=== PATIENT | male | born 1960 | race Two or more races ===

== ENCOUNTER 2024-03-25 11:11 | Inpatient (IN) | payer MEDICAID, OTHER ==
[~2024-03-25] VITALS: Ht 172.7 cm; Wt 64.5 kg
--- NOTE | 2024-03-25 11:48 | ED.PDOC ---
History of Present Illness HPI Comments 63-year-old male who comes in with chief complaint of a headache as well as dizziness and neck pain. The patient states that the symptoms have been going on for the past three weeks. The patient went to a local urgent care and at that time they found him to be very hypertensive with a systolic over 200 and d iastolic over 100. Denies any chest pain or shortness for breath. The patient was complaining of some blurred vision as well as some dizziness. At this time he states that the pain is a 6/10. The doctor at the urgent care called 911 and had the patient transported to our facility secondary to the increased blood pressure. The patient does have some mild left-sided weakness secondary to a CVA that he had in the past. 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 Location: The patient states that the headache is somewhat generalized Associated signs and symptoms The patient has blurred vision as well as dizziness Past Medical History PAST MEDICAL HISTORY: CVA, High Lipids Surgical History: Denies all surgeries Family History Family History: Family hx of DM Social History Smoker: Non-Smoker Alcohol: Denies ETOH Use Drugs: Denies Drug Use Lives In: Home Constitutional: denies: chills, diaphoresis, fatigue, fever, malaise, sweats, weakness, others EENTM: reports: blurred vision; denies: double vision, ear bleeding, ear discharge, ear drainage, ear pain, ear ringing, eye pain, eye redness, hearing loss, mouth pain, mouth swelling, nasal discharge, nose bleeding, nose congestion, nose pain, photophobia, tearing, throat pain, throat swelling, voice changes, others Respiratory: denies: cough, hemoptysis, orthopnea, SOB at rest, shortness of breath, SOB with excertion, stridor, wheezing, others Cardiovascular: denies: chest pain, dizzy spells, diaphoresis, Dyspnea on exertion, edema, irregular heart beat, left arm pain, lightheadedness, palpitations, PND, syncope, others Gastrointestinal: denies: abdomen distended, abdominal pain, blood streaked bowels, constipated, diarrhea, dysphagia, difficulty swallowing, hematemesis, melena, nausea, poor appetite, poor fluid intake, rectal bleeding, rectal pain, vomiting, others Genitourinary: denies: burning, dysuria, flank pain, frequency, hematuria, incontinence, penile discharge, penile sore, pain, testicle pain, testicle swelling, urgency, others Neurological: reports: dizziness, headache; denies: fainting, left sided numbness, left sided weakness, numbness, paresthesia, pre-existing deficit, right sided numbness, right sided weakness, seizure, speech problems, tingling, tremors, weakness, others Musculoskeletal: reports: neck pain; denies: back pain, gout, joint pain, joint swelling, muscle pain, muscle stiffness, others Integumetry: denies: bruises, change in color, change in hair/nails, dryness, laceration, lesions, lumps, rash, wounds, others Allergic/Immunocompromised: denies: Difficulty Healing, Frequent Infections, Hives, Itching, others Hematologic/Lymphatic: denies: anemia, blood clots, easy bleeding, easy bruis ing, swollen glands, others Endocrine: denies: excessive hunger, excessive sweating, excessive thirst, exc essive urination, flushing, intolerance to cold, intolerance to heat, unexplained weight gain, unexplained weight loss, others Psychiatric: denies: anxiety, bipolar disorder, depression, hopeless, panic disorder, schizophrenia, sleepless, suicidal, others Physical Exam General Appearance: Mild Distress HEENT: Normal ENT Inspection, Pharynx Normal, TMs Normal Neck: Full Range of Motion, Non-Tender, Normal, Normal Inspection Respiratory: Chest Non-Tender, Lungs Clear, No Accessory Muscle Use, No Respiratory Distress, Normal Breath Sounds Cardiovascular: No Edema, No JVD, No Murmur, No Gallop, Normal Peripheral Pulses, Regular Rate/Rhythm Breast Exam: Deferred Gastrointestinal: No Organomegaly, Non Tender, No Pulsatile Mass, Normal Bowel Sounds, Soft Genitalia: Deferred Pelvic: Deferred Rectal: Deferred Extremities: No calf tenderness, Normal capillary refill, Normal inspection, Normal range of motion, Non-tender, No pedal edema Musculoskeletal : Apperance: Normal Neurologic: Alert, 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 Was a procedure done?: No EKG EKG : Pulse Rate (adult): 90 [place]: Normal Cardiac Rhythm: NSR Block: None ST: Nonsp Differential Dx Considerations may include: Accelerated hypertension, CVA, TIA, generalized weakness X-Ray, Labs, Meds, VS Vital Signs Date Time Temp Pulse Resp B/P (MAP) Pulse Ox O2 Delivery O2 Flow Rate FiO2 03/25/24 13:18 94 17 97 Room Air 03/25/24 13:18 97.9 94 17 184/109 (134) 97 97.9 03/25/24 13:17 184/109 03/25/24 12:36 90 03/25/24 11:33 90 03/25/24 11:27 98.0 99 20 148/124 (132) 100 Lab Test 03/25/24 11:45 Range/Units White Blood Count 6.5 4.4-10.8 10^3/uL Red Blood Count 5.19 4.5-5.90 10^6/uL Hemoglobin 14.9 13.5-17.5 g/dL Hematocrit 43.6 41.0-53.0 % Mean Corpuscular Volume 84.0 80.0-100.0 fL Mean Corpuscular Hemoglobin 28.7 28.0-32.0 pg Mean Corpuscular Hemoglobin Concent 34.1 32.0-36.0 g/dL Red Cell Distribution Width 13.0 11.8-14.3 % Platelet Count 266 140-450 10^3/uL Mean Platelet Volume 7.6 6.9-10.8 fL Neutrophils (%) (Auto) 77.4 37.0-80.0 % Lymphocytes (%) (Auto) 15.2 10.0-50.0 % Monocytes (%) (Auto) 5.8 0.0-12.0 % Eosinophils (%) (Auto) 0.9 0.0-7.0 % Basophils (%) (Auto) 0.7 0.0-2.0 % Neutrophils # (Auto) 5.1 1.6-8.6 10 ^3/uL Lymphocytes # (Auto) 1.0 0.4-5.4 10 ^3/uL Monocytes # (Auto) 0.4 0-1.3 10 ^3/uL Eosinophils # (Auto) 0.1 0-0.8 10 ^3/uL Basophils # (Auto) 0 0-0.2 10 ^3/uL Nucleated Red Blood Cells 0.5 % Sodium Level 138 136-145 mmol/L Potassium Level 4.2 3.5-5.1 mmol/L Chloride Level 100 98-107 mmol/L Carbon Dioxide Level 27 20-31 mmol/L Anion Gap 11 5-15 Blood Urea Nitrogen 16 9-23 mg/dL Creatinine 1.23 0.700-1.30 mg/dL Glomerular Filtration Rate Calc 66 >90 mL/min BUN/Creatinine Ratio 13.0 10.0-20.0 Serum Glucose 266 H 74-106 mg/dL Calcium Level 10.7 H 8.7-10.4 mg/dL Current Medications Medications (Trade) Dose Ordered Sig/Linda Route Start Time Stop Time Status Last Admin Clonidine HCl (Catapres Tablet) 0.2 mg ONCE ONCE PO 03/25/24 11:45 03/25/24 11:46 DC 03/25/24 13:17 IV Hep-Lock is being established The CBC is within normal limits The patient was given clonidine 0.2 mg by mouth for the elevated blood pressure The CT scan of the head shows: FINDINGS: There is no acute intracranial hemorrhage or extraaxial fluid collection. No mass effect or midline shift. Focal area of hypoattenuation in the right thalamus and adjacent portions of the right basal ganglia and extending to the subinsular region, likely encephalomalacia/gliosis. Small chronic appearing lacunar infarct in the left thalamus. Scattered areas of hypoattenuation are seen in the periventricular and subcortical white matter, which are nonspecific but most likely sequelae of small vessel ischemic disease.The ventricles and sulci are within normal limits in size for age. Basal cisterns are patent. The calvarium is unremarkable. Mild mucosal thickening of the paranasal sinuses. The patient was being admitted at this time. The patient has a accelerated hypertension We will continue to manage the patient's elevated blood pressure The patient was being given hydralazine IV for the elevated blood pressure Images Reviewed?: Images reviewed and evaluated by me Time of 1ST Reevaluation: 12:33 Reevaluation 1ST: Unchanged Patient Education/Counseling: Diagnosis, Treatment, Prognosis Family Education/Counseling: No Family Present Departure 1 Departure Time of Disposition: 12:33 Impression: Primary Impression: Accelerated hypertension Disposition: 09 ADMITTED INPATIENT Admit to: Tele Condition: Fair Critical Care Note Critical Care Time?: Yes (35 min-critical care time only) Stability Stability form required: Yes Unstable for transfer: Telemetry monitoring (Telemetry monitoring required), ED Physician Assesment (Clinical assesment) Heart Score Heart Score: Heart Score Response (Comments) Value History Moderate Suspicious 1 EKG Repolarization Disturb 1 Age 45-64 1 Risk Factors >3 or Hx ASHD 2 Troponin N/A 0 Total 5 GAL NYE MD Mar 25, 2024 11:48
[2024-03-25 12:26] LABS: Basophils # (auto) 0 10 ^3/uL (0-0.2); Basophils % (auto) 0.7 % (0.0-2.0); Eosinophils # (auto) 0.1 10 ^3/uL (0-0.8); Eosinophils % (auto) 0.9 % (0.0-7.0); Hematocrit 43.6 % (41.0-53.0); Hemoglobin 14.9 g/dL (13.5-17.5); Lymphocytes % (auto) 15.2 % (10.0-50.0); Mean Corpuscular Hemoglobin 28.7 pg (28.0-32.0); Mean Corpuscular Hgb Conc. 34.1 g/dL (32.0-36.0); Monocytes # (auto) 0.4 10 ^3/uL (0-1.3); Monocytes % (auto) 5.8 % (0.0-12.0); Neutrophils # (auto) 5.1 10 ^3/uL (1.6-8.6); Neutrophils % (auto) 77.4 % (37.0-80.0); Nucleated Red Blood Cells % 0.5 %; Platelet Count (auto) 266 10^3/uL (140-450); Red Blood Cells 5.19 10^6/uL (4.5-5.90); White Blood Cell 6.5 10^3/uL (4.4-10.8)
--- NOTE | 2024-03-25 12:28 | DVH ---
CLINICAL INFORMATION: 63 years old, Male; Dizziness and headache. TECHNIQUE: Axial imaging was obtained through the brain without contrast. Coronal and sagittal refor matted images were obtained, reviewed, and stored. Images were reviewed in brain and bone windows. A ll CT scans at this medical facility are performed using dose modulation techniques as appropriate to a performed exam including the following: Automated exposure control was utilized; adjustment of the MA and/or KV according to patient size; and use of iterative reconstruction technique. CTDIvol = 54.16 mGy DLP = 957.85 mGy-cm COMPARISON: None FINDINGS: There is no acute intracranial hemorrhage or extraaxial fluid collection. No mass effect o r midline shift. Focal area of hypoattenuation in the right thalamus and adjacent portions of the rig ht basal ganglia and extending to the subinsular region, likely encephalomalacia/gliosis. Small chron ic appearing lacunar infarct in the left thalamus. Scattered areas of hypoattenuation are seen in the periventricular and subcortical white matter, which are nonspecific but most likely sequelae of smal l vessel ischemic disease.The ventricles and sulci are within normal limits in size for age. Basal ci sterns are patent. The calvarium is unremarkable. Mild mucosal thickening of the paranasal sinuse s. IMPRESSION: 1. No CT evidence of acute intracranial abnormality. 2. Nonacute appearing findings as described above.
[2024-03-25 12:38] LABS: Chloride 100 mmol/L (98-107); Potassium 4.2 mmol/L (3.5-5.1); Sodium 138 mmol/L (136-145)
[2024-03-25 12:39] LABS: Anion Gap 11 (5-15); Carbon Dioxide 27 mmol/L (20-31)
[2024-03-25 12:44] LABS: Blood Urea Nitrogen 16 mg/dL (9-23); Calcium 10.7 mg/dL (8.7-10.4); Glucose 266 mg/dL (74-106)
[2024-03-25] MEDS: cloNIDine HCL 0.1 MG TAB PO ONE (13:17)
[2024-03-25] MEDS ORDERED: MORPHINE SULFATE INJ 2 MG/ml SYRG IV PRN (14:00)
[2024-03-25] MEDS ORDERED: DEXTROSE (50%) 50ML SYRG IV PRN (14:00)
[2024-03-25] MEDS: SODIUM CHLORIDE 0.9% 1,000 ML IV SCH (14:00)
[2024-03-25] MEDS ORDERED: DOCUSATE SOD 100 MG CAP PO PRN (14:00)
[2024-03-25] MEDS ORDERED: MAALOX PLUS or MAALOX 30 ML PO PRN (14:00)
--- NOTE | 2024-03-25 14:23 | DVHHP2 ---
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 Dyspnea, Edema, Lt Headedness, Other Gastrointestinal: No: Nausea, Vomiting, Abdominal Pain, Diarrhea, Constipation, Melena, Hematochezia, Other Genitourinary: No Dysuria, No Frequency, No Incontinence, No Hematuria, No Retention, No Other Musculoskeletal: neck pain; No: other, shoulder pain, arm pain, back pain, hand pain, leg pain, foot pain Skin: No: Rash, Lesions, Jaundice, Bruising, Other Neurological: No: Weakness, Numbness, Incoordination, Change in speech, Confusion, Seizures, Other Medications Current Medications Medications Dose Ordered Sig/Linda Route Start Time Stop Time Status Last Admin Dose Admin Diagnostic Test (Pha) 1 strip IQ4HR 03/25/24 16:00 UNV Insulin Human Regular IQ4HR SC 03/25/24 16:00 UNV Dextrose 50 ml UD PRN IV 03/25/24 14:00 UNV Sodium Chloride 1,000 ml @ 60 mls/hr [id number] IV 03/25/24 14:00 UNV Lorazepam 0.5 mg Q6HP PRN PO 03/25/24 14:00 UNV Al Hydrox/Mg Hydrox/Simethicone 30 ml Q6HP PRN PO 03/25/24 14:00 UNV Docusate Sodium 100 mg BIDPRN PRN PO 03/25/24 14:00 UNV Acetaminophen 650 mg Q6HP PRN PO 03/25/24 14:00 UNV Temazepam 15 mg QHSP PRN PO 03/25/24 14:00 UNV Acetaminophen/ Hydrocodone Bitart 1 tab Q4HP PRN PO 03/25/24 14:00 UNV Ondansetron HCl 4 mg Q4HP PRN IV 03/25/24 14:00 UNV Morphine Sulfate 2 mg Q4HPRN PRN IV 03/25/24 14:00 UNV Clonidine HCl 0.2 mg Q8HR PO 03/25/24 14:00 UNV Hydralazine HCl 10 mg Q6HPRN PRN PO 03/25/24 14:00 UNV Lisinopril 20 mg DAILY PO 03/26/24 10:00 UNV Exam Vital Signs Vital Signs Date Time Temp Pulse Resp B/P (MAP) Pulse Ox O2 Delivery O2 Flow Rate FiO2 03/25/24 13:18 94 17 97 Room Air 03/25/24 13:18 97.9 184/109 (134) 97.9 General Appearance: Oriented X3, Cooperative, mild distress HEENT: Atraumatic, PERRLA Respiratory: Clear to auscultation, Normal air movement Cardiovascular: Regular rate, Normal S1, Normal S2 Abdominal: Normal bowel sounds, Soft Extremities: No clubbing, No cyanosis, No edema Skin: No rashes, No breakdown Neuro: Normal gait, Normal speech Psych/Mental Status: Mood NL Labs/Xrays Labs Test 03/25/24 11:45 Range/Units White Blood Count 6.5 4.4-10.8 10^3/uL Red Blood Count 5.19 4.5-5.90 10^6/uL Hemoglobin 14.9 13.5-17.5 g/dL Hematocrit 43.6 41.0-53.0 % Mean Corpuscular Volume 84.0 80.0-100.0 fL Mean Corpuscular Hemoglobin 28.7 28.0-32.0 pg Mean Corpuscular Hemoglobin Concent 34.1 32.0-36.0 g/dL Red Cell Distribution Width 13.0 11.8-14.3 % Platelet Count 266 140-450 10^3/uL Mean Platelet Volume 7.6 6.9-10.8 fL Neutrophils (%) (Auto) 77.4 37.0-80.0 % Lymphocytes (%) (Auto) 15.2 10.0-50.0 % Monocytes (%) (Auto) 5.8 0.0-12.0 % Eosinophils (%) (Auto) 0.9 0.0-7.0 % Basophils (%) (Auto) 0.7 0.0-2.0 % Neutrophils # (Auto) 5.1 1.6-8.6 10 ^3/uL Lymphocytes # (Auto) 1.0 0.4-5.4 10 ^3/uL Monocytes # (Auto) 0.4 0-1.3 10 ^3/uL Eosinophils # (Auto) 0.1 0-0.8 10 ^3/uL Basophils # (Auto) 0 0-0.2 10 ^3/uL Nucleated Red Blood Cells 0.5 % Sodium Level 138 136-145 mmol/L Potassium Level 4.2 3.5-5.1 mmol/L Chloride Level 100 98-107 mmol/L Carbon Dioxide Level 27 20-31 mmol/L Anion Gap 11 5-15 Blood Urea Nitrogen 16 9-23 mg/dL Creatinine 1.23 0.700-1.30 mg/dL Glomerular Filtration Rate Calc 66 >90 mL/min BUN/Creatinine Ratio 13.0 10.0-20.0 Serum Glucose 266 H 74-106 mg/dL Calcium Level 10.7 H 8.7-10.4 mg/dL Assessment/Plan Assessment/Plan Admit to [facility] Hypertensive urgency Accelerated hypertension Patient will blood pressures greater than 180 systolic We will start a medication for the management of accelerated hypertension with clonidine t.i.d. P.r.n. hydralazine in order to maintain and manage it blood pressures systolically less than 180 We will avoid aggressive management of bring the blood pressure down greater than 20% within the next 24 hours To minimize risk of stroke Diabetes uncontrolled Insulin sliding scale moderate while inpatient Monitor for need of insulin inpatient And adjust as needed Consider adding oral agents outpatient We will start lisinopril daily for kidney protection and accelerated hypertension And uncontrolled diabetes Plan discussed with: Patient My Orders Orders - EAN SOL MD Procedure Category Date Status Time Glucose Blood PHA 03/25/24 Logged (Accu-Chek Comfort 16:00 Insulin R (Human) PHA 03/25/24 Logged (Insulin R) 16:00 Dextrose 50% Syringe PHA 03/25/24 Logged 14:00 Admit ADMIT 03/25/24 Transmitted 13:57 Code Status CODE 03/25/24 Transmitted 13:57 Vital Signs [facility] 03/25/24 In Process 13:57 Review Orders With [facility] 03/25/24 In Process Adm.Md 13:57 Consistent DIET 03/25/24 Transmitted Carb(Ccho)Diabetes Dinner Sodium Chloride 0.9% PHA 03/25/24 Logged 14:00 Lorazepam Tablet PHA 03/25/24 Logged (Ativan Tablet) 14:00 Alum & Mag PHA 03/25/24 Logged Hydrox-Simethicone 14:00 Docusate Sodium PHA 03/25/24 Logged Capsule (Colace 14:00 Acetaminophen Tablet PHA 03/25/24 Logged (Tylenol Tablet) 14:00 Temazepam (Restoril) PHA 03/25/24 Logged 14:00 Notify Of Changes [facility] 03/25/24 In Process From Base 13:57 Advance Directive [facility] 03/25/24 In Process 13:57 Basic Metabolic Panel LAB 03/26/24 Verified 04:00 Urinalysis LAB 03/25/24 Logged 13:57 Complete Blood Count LAB 03/26/24 Verified 04:00 Patient Condition ORDERS 03/25/24 Transmitted 13:57 Allergies [facility] 03/25/24 In Process 13:57 Hydrocodone-Acet PHA 03/25/24 Logged 5/325mg Tab (Peoa 14:00 Ondansetron Hcl PHA 03/25/24 Logged (Zofran) 14:00 Morphine Sulfate PHA 03/25/24 Logged Injection 14:00 Stat Ekg For Chest [facility] 03/25/24 In Process Pain 13:57 Oxygen By Nasal RT 03/25/24 Transmitted Cannula 13:57 Clonidine Hcl Tablet PHA 03/25/24 Logged (Catapres Tablet) 14:00 Hydralazine Hcl PHA 03/25/24 Logged Tablet (Apresoline 14:00 Lisinopril Tablet PHA 03/26/24 Logged (Zestril Tablet) 10:00 Problem List: (1) Diabetes mellitus type 2 with complications, uncontrolled (2) Accelerated hypertension Date of Service: Mar 25, 2024 Billing Provider: EAN SOL MD Common Visit Codes: [id number] INP/OBS CARE (HIGH) EAN SOL MD Mar 25, 2024 14:23
[2024-03-25 15:23] LABS: Urine WBC None Seen /hpf (0 - 3)
--- NOTE | 2024-03-25 15:32 | DVH ---
CAROTID ARTERIAL DOPPLER CLINICAL HISTORY: htn stenosis evaluation TECHNIQUE: Doppler study of bilateral carotid/vertebral arteries were performed. Comparison: None FINDINGS: The bilateral common carotid, external and internal carotid arteries appear patent without hemodynami jack significant stenosis. There is no significant flow limiting plaque formation identified.The sp ectral wave forms and peak systolic velocities are within normal limits. Antegrade flow is present within the vertebral arteries with appropriate velocities and waveforms. Right ICA/CCA PSV ratio = 0.9. Left ICA/CCA PSV ratio = 1.0 . IMPRESSION: 1. No hemodynamically significant stenosis within the carotid arteries. HS:Y
[2024-03-25 15:53] LABS: Urine Bacteria FEW /hpf (None Seen); Urine Blood Negative /uL (Negative); Urine Clarity Clear (Clear); Urine Color Light-Yellow (Yellow); Urine Protein, UAD TRACE (Negative); Urine Specific Gravity 1.008 (1.001-1.035); Urine Urobilinogen Normal (Negative)
[2024-03-25] MEDS: ACCU-CHEK COMFORT CURVE STRIP VI SCH (16:00)
[2024-03-25] MEDS: InsuLIN REG 1unit/0.01ml Soln (100units/ml) SC SCH (16:00)
[2024-03-25 17:50] VITALS: RESP 16; O2SAT 97
[2024-03-25] MEDS: hydrALAZINE HCL 20 MG/ML VL IV ONE (18:49)
[2024-03-25 19:55] VITALS: BP 156/87; PULSE 67; RESP 18; TEMP 97.4; O2SAT 99
[2024-03-25] MEDS: cloNIDine HCL 0.1 MG TAB PO SCH (20:57)
[2024-03-25 21:54] VITALS: BP 177/103; PULSE 63; RESP 20; TEMP 98.8; O2SAT 99
[2024-03-26] VITALS (8 sets, daily range): BP systolic 123–169; BP diastolic 71–105; PULSE 54–111; RESP 17–20; TEMP 97.4–98.6; O2SAT 95–100
[2024-03-26 07:12] LABS: Basophils # (auto) 0 10 ^3/uL (0-0.2); Basophils % (auto) 0.8 % (0.0-2.0); Eosinophils # (auto) 0.2 10 ^3/uL (0-0.8); Hematocrit 39.1 % (41.0-53.0); Hemoglobin 13.6 g/dL (13.5-17.5); Lymphocytes # (auto) 1.4 10 ^3/uL (0.4-5.4); Lymphocytes % (auto) 24.9 % (10.0-50.0); Mean Corpuscular Hemoglobin 29.4 pg (28.0-32.0); Mean Corpuscular Hgb Conc. 34.9 g/dL (32.0-36.0); Mean Corpuscular Volume 84.2 fL (80.0-100.0); Monocytes # (auto) 0.4 10 ^3/uL (0-1.3); Monocytes % (auto) 6.7 % (0.0-12.0); Neutrophils # (auto) 3.5 10 ^3/uL (1.6-8.6); Neutrophils % (auto) 64.6 % (37.0-80.0); Nucleated Red Blood Cells % 0.1 %; Platelet Count (auto) 219 10^3/uL (140-450); Red Blood Cells 4.64 10^6/uL (4.5-5.90); Red Cell Distribution Width 13.2 % (11.8-14.3); White Blood Cell 5.4 10^3/uL (4.4-10.8)
[2024-03-26 08:27] LABS: Chloride 103 mmol/L (98-107); Potassium 4.5 mmol/L (3.5-5.1); Sodium 140 mmol/L (136-145)
[2024-03-26 08:28] LABS: Anion Gap 7 (5-15); Calcium 10.2 mg/dL (8.7-10.4); Carbon Dioxide 30 mmol/L (20-31)
[2024-03-26 08:33] LABS: BUN/Creatinine Ratio 16.8 (10.0-20.0); Blood Urea Nitrogen 19 mg/dL (9-23)
[2024-03-26 08:34] LABS: Glucose 141 mg/dL (74-106); LDL Cholesterol 97 mg/dL (< 100)
[2024-03-26 08:35] LABS: Cholesterol 175 mg/dL (< 200)
[2024-03-26 08:40] LABS: HDL Cholesterol 39 mg/dL (40-59); Triglycerides 231 mg/dL (< 150)
[2024-03-26 08:42] LABS: INR 1.06 (0.9-1.15); Partial Thromboplastin Time 29.2 SEC (24.5-34.5); Prothrombin Time 11.2 sec (9.3-11.8)
[2024-03-26] MEDS: LISINOPRIL 20 MG TAB PO SCH (09:35)
--- NOTE | 2024-03-26 10:21 | DVHPNRES ---
Progress Note Date Seen: Mar 26, 2024 Resident Creating Document: JEREMY IVAN RESIDENT Has the PT tested + for MRSA If YES, has PT been informed?: No Medical Necessity Reason Pt with a Central, PICC or Fol: No Subjective Review of Systems 63-year-old male with past medical history of hypertension hyperlipidemia and CVA comes to the ED with complaint of dizziness neck pain patient has been having issues with high blood pressure but takes no medication on initial evaluation in the ED the patient's blood pressure was higher than 200s over 100s patient was complaining of blurry vision weakness dizziness while in the ED initially started on medication and recommended for admission further evaluation and continued care as per ED 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 Objective vital signs Vital Sign Date Time Temp Pulse Resp B/P (MAP) Pulse Ox O2 Delivery O2 Flow Rate FiO2 03/26/24 09:35 117/75 03/26/24 05:00 98.0 57 20 97 98.0 03/25/24 21:54 Room Air* 0 21 Total Intake and Output 03/25/24 03/25/24 03/26/24 15:00 23:00 07:00 Intake Total 100 ml Output Total 600 ml Balance -500 ml medications Current Medications Medications Dose Ordered Sig/Linda Route Start Time Stop Time Status Last Admin Dose Admin Sodium Chloride 1,000 ml @ 60 mls/hr [id number] IV 03/25/24 14:00 03/25/24 14:00 60 MLS/HR Lorazepam 0.5 mg Q6HP PRN PO 03/25/24 14:00 Al Hydrox/Mg Hydrox/Simethicone 30 ml Q6HP PRN PO 03/25/24 14:00 Docusate Sodium 100 mg BIDPRN PRN PO 03/25/24 14:00 Acetaminophen 650 mg Q6HP PRN PO 03/25/24 14:00 Temazepam 15 mg QHSP PRN PO 03/25/24 14:00 Acetaminophen/ Hydrocodone Bitart 1 tab Q4HP PRN PO 03/25/24 14:00 Ondansetron HCl 4 mg Q4HP PRN IV 03/25/24 14:00 Morphine Sulfate 2 mg Q4HPRN PRN IV 03/25/24 14:00 Clonidine HCl 0.2 mg Q8H PO 03/25/24 21:00 03/25/24 22:22 0.2 MG Hydralazine HCl 10 mg Q6HPRN PRN PO 03/25/24 14:00 Lisinopril 20 mg DAILY PO 03/26/24 10:00 03/26/24 09:35 20 MG Examination General Appearance: Oriented X3, Cooperative HEENT: Atraumatic, PERRLA Respiratory: Clear to auscultation, Normal air movement Cardiovascular: Regular rate, Normal S1, Normal S2 Abdominal: Normal bowel sounds, Soft Extremities: No clubbing, No cyanosis, No edema Skin: No rashes, No breakdown Neuro: mild weakness in the left hemibody Psych/Mental Status: Mood NL laboratory and microbiology Laboratory Tests 03/26/24 05:55 Test 03/26/24 05:55 Range/Units Serum Glucose 141 #H 74-106 mg/dL Problem List/Assessment/Plan Problem List/Assessment/Plan #Hypertensive urgency resolved #DM type 2 pending hb1ac #h/o stroke in june 2024 #Focal area of hypoattenuation in the right thalamus and adjacent portions of the right basal ganglia and extending to the subinsular region, likely encephalomalacia/gliosis. #Small chronic appearing lacunar infarct in the left thalamus. #Sequelae of small vessel ischemic disease in periventricular and subcortical white matter Stop fluids Aspirin Lisinopril 20 mg Clonidine amd Hydralazine PRN Pending hba1c to define treatment Pending ECHO EKG normal Case discussed with Dr Felder Time spent in care 23 min Plan discussed with: Patient, Other (rn) My Orders My Orders Orders - JEREMY IVAN Procedure Category Date Status Time Electrocardigram EKG 03/26/24 Logged 07:46 Troponin-I Hs LAB 03/26/24 In Process 07:46 Drug Screen LAB 03/26/24 Logged 08:04 Hemoglobin A1c LAB 03/26/24 In Process 08:04 Date of Service: Mar 26, 2024 Billing Provider: FAROOQ FELDER MD Common Visit Codes: [id number] INP/OBS CARE(HIGH) Secondary Visit Codes: [id number] CARE PLAN 30 MINUTES JEREMY IVAN Mar 26, 2024 10:21 FAROOQ FELDER MD Mar 28, 2024 20:29
[2024-03-26] MEDS: hydrALAZINE HCL 10 MG TAB PO PRN (10:52)
[2024-03-26] MEDS: ACETAMINOPHEN 325 MG TAB PO PRN (10:54)
--- NOTE | 2024-03-26 12:50 | ECG ---
[facility] Test Date: 2024-03-25 Test Time: 11:23:54 Pat Name: EMILY ELLISON Department: ed Room: 0218 B Gender: M Special Procedures Nurse: florentino : 1960 Requested By: GAL NYE Order Number: [id number] Reading MD: Reilly Girard Measurements Intervals [place] Rate: 90 P: 31 NM: 197 QRS: -25 QRSD: 96 T: 57 QT: 361 QTc: 442 Interpretive Statements Sinus rhythm Borderline left axis deviation Minimal ST elevation, anterior leads Baseline wander in lead(s) V1 Electronically Signed On 03-26-2024 13:07:04 PST by Reilly Girard Please click the below link to view image of tracing.
--- NOTE | 2024-03-26 13:03 | DVHSR ---
APPROVED REPORT EXAM: Two-dimensional and M-mode echocardiogram with Doppler and color Doppler. Blood Pressure: 123/71 mmHg INDICATION HTN urgency RISK FACTORS Height: 5'8, Weight: 149 DIMENSIONS LVDd3.7 (3.8-5.7cm)LA (2D)3.3 (1.9-4.0cm)Aortic Root3.8 (2.0-3.7cm) LVDs2.8 (2.5-4.0cm)LA (MM) (1.9-4.0cm)Aortic Cusp Exc1.8 (1.5-2.0cm) EF (%) 50.0 (55-70%)Rt. Atrium3.2 (1.9-4.0cm)Asc. Aorta3.6 cm IVSd1.0 (0.7-1.1cm)RV (D) (1.8-2.4cm) PWd1.2 (0.7-1.1cm) Mitral Valve MitralMitral Stenosis E wave0.46m/sMV Mean GR.mmHg A wave0.63m/sMV Peak GR.mmHg E/A ratio0.72D MVAcm2 DECEL [id number] 1/2 Timems Aortic Valve Aortic ValveAortic Stenosis V10.76m/Jose G Mean GR.2mmHg V21.07m/Jose G Peak GR.5mmHg LVOT Diameter2.2 (1.8-2.4cm)Doppler AVA2.70cm2 Pulmonic Valve V20.81m/s Conclusion Normal left ventricular size and dimension. Normal left ventricular systolic function estimated ejec tion fraction 55%. There is a grade 1 diastolic dysfunction. Normal right ventricular size and dimension. Normal right ventricular systolic function. Normal biatrial size and dimension. Normal aortic valve structure function. Normal mitral valve structure and function. Normal tricuspid valve structure and function. The pulmonary valve is grossly normal. No pericardial effusion.
[2024-03-26] MEDS: hydroCHLOROthiazide 25 MG TAB PO SCH (14:27)
[2024-03-26] MEDS: NIFEdipine ER 30 MG TAB PO SCH (14:28)
[2024-03-26] MEDS: LORazepam 0.5 MG TAB PO PRN (15:45)
[2024-03-26] MEDS: hydrALAZINE HCL 20 MG/ML VL IV PRN (21:34)
[2024-03-26] MEDS: HYDROcodone-ACET 5/325MG TAB PO PRN (21:35)
[2024-03-26] MEDS: ONDANSETRON HCL 4 MG/2 ML VIAL IV PRN (23:26)
[2024-03-27] MEDS: TEMAZEPAM 15 MG CAP PO PRN (00:11)
[2024-03-27 00:58] VITALS: BP 178/110; PULSE 123; RESP 20; TEMP 98.1; O2SAT 96
[2024-03-27 05:00] VITALS: BP 147/88; PULSE 104; RESP 20; TEMP 98; O2SAT 97
[2024-03-27 07:17] LABS: Basophils # (auto) 0.1 10 ^3/uL (0-0.2); Basophils % (auto) 0.5 % (0.0-2.0); Eosinophils # (auto) 0.1 10 ^3/uL (0-0.8); Eosinophils % (auto) 0.8 % (0.0-7.0); Hemoglobin 15.9 g/dL (13.5-17.5); Lymphocytes # (auto) 1.9 10 ^3/uL (0.4-5.4); Lymphocytes % (auto) 19.2 % (10.0-50.0); Mean Corpuscular Hgb Conc. 34.6 g/dL (32.0-36.0); Mean Corpuscular Volume 83.7 fL (80.0-100.0); Monocytes # (auto) 0.8 10 ^3/uL (0-1.3); Monocytes % (auto) 7.8 % (0.0-12.0); Neutrophils % (auto) 71.7 % (37.0-80.0); Nucleated Red Blood Cells % 0.1 %; Platelet Count (auto) 288 10^3/uL (140-450); Red Cell Distribution Width 13.2 % (11.8-14.3); White Blood Cell 9.8 10^3/uL (4.4-10.8)
[2024-03-27 07:28] LABS: Alanine Aminotransferase 16 U/L (7-40); Alkaline Phosphatase 86 U/L (46-116); Anion Gap 12 (5-15); BUN/Creatinine Ratio 13.7 (10.0-20.0); Blood Urea Nitrogen 18 mg/dL (9-23); Carbon Dioxide 25 mmol/L (20-31); Chloride 99 mmol/L (98-107)
[2024-03-27 07:29] LABS: Total Protein 7.6 g/dL (5.7-8.2)
[2024-03-27 07:54] LABS: Albumin 4.8 g/dL (3.2-4.8); Aspartate Aminotransferase 8 U/L (13-40); Bilirubin, Total 1.4 mg/dL (0.2-1.0); Calcium 10.4 mg/dL (8.7-10.4); Glucose 249 mg/dL (74-106); Potassium 3.5 mmol/L (3.5-5.1); Sodium 136 mmol/L (136-145)
[2024-03-27 08:00] VITALS: PULSE 109; O2SAT 96
[2024-03-27 09:00] VITALS: BP 162/97; PULSE 109; RESP 15; TEMP 98.3; O2SAT 97
[2024-03-27] MEDS: ASPirin 81 mg TAB PO SCH (09:02)
[2024-03-27] MEDS ORDERED: LISI20TA56 PO (09:51)
[2024-03-27] MEDS ORDERED: ACET-1882 PO (09:51)
[2024-03-27] MEDS ORDERED: HYDR25TA5 PO (09:51)
[2024-03-27] MEDS ORDERED: NIFE1TAB31 PO (09:51)
[2024-03-27] MEDS ORDERED: ASPI-325 PO (09:51)
[2024-03-27] MEDS ORDERED: hydroCHLOROthiazide 25 MG TAB PO SCH (10:00)
[2024-03-27] MEDS ORDERED: NIFEdipine ER 30 MG TAB PO SCH (10:00)
[2024-03-27 10:31] VITALS: BP 148/91; PULSE 109; RESP 18; TEMP 98.3; O2SAT 96
--- NOTE | 2024-03-27 18:38 | DVHDSRES ---
Discharge Summary Date of Admission Resident Creating Document: JEREMY IVAN RESIDENT Mar 25, 2024 at 13:57 Date of Discharge: Mar 27, 2024 Labs/Diagnostic Data: Laboratory Results Test 03/27/24 08:00 03/27/24 06:11 03/26/24 09:17 03/26/24 05:55 POC Glucose 241 mg/dl (70-106) White Blood Count 9.8 10^3/uL (4.4-10.8) Red Blood Count 5.50 10^6/uL (4.5-5.90) Hemoglobin 15.9 g/dL (13.5-17.5) Hematocrit 46.0 % (41.0-53.0) Mean Corpuscular Volume 83.7 fL (80.0-100.0) Mean Corpuscular Hemoglobin 29.0 pg (28.0-32.0) Mean Corpuscular Hemoglobin Concent 34.6 g/dL (32.0-36.0) Red Cell Distribution Width 13.2 % (11.8-14.3) Platelet Count 288 10^3/uL (140-450) Mean Platelet Volume 7.7 fL (6.9-10.8) Neutrophils (%) (Auto) 71.7 % (37.0-80.0) Lymphocytes (%) (Auto) 19.2 % (10.0-50.0) Monocytes (%) (Auto) 7.8 % (0.0-12.0) Eosinophils (%) (Auto) 0.8 % (0.0-7.0) Basophils (%) (Auto) 0.5 % (0.0-2.0) Neutrophils # (Auto) 7.0 10 ^3/uL (1.6-8.6) Lymphocytes # (Auto) 1.9 10 ^3/uL (0.4-5.4) Monocytes # (Auto) 0.8 10 ^3/uL (0-1.3) Eosinophils # (Auto) 0.1 10 ^3/uL (0-0.8) Basophils # (Auto) 0.1 10 ^3/uL (0-0.2) Nucleated Red Blood Cells 0.1 % Sodium Level 136 mmol/L (136-145) Potassium Level 3.5 mmol/L (3.5-5.1) Chloride Level 99 mmol/L (98-107) Carbon Dioxide Level 25 mmol/L (20-31) Anion Gap 12 (5-15) Blood Urea Nitrogen 18 mg/dL (9-23) Creatinine 1.31 mg/dL (0.700-1.30) Glomerular Filtration Rate Calc 62 mL/min (>90) BUN/Creatinine Ratio 13.7 (10.0-20.0) Serum Glucose 249 mg/dL (74-106) Calcium Level 10.4 mg/dL (8.7-10.4) Total Bilirubin 1.4 mg/dL (0.2-1.0) Aspartate Amino Transferase (AST) 8 U/L (13-40) Alanine Aminotransferase (ALT) 16 U/L (7-40) Alkaline Phosphatase 86 U/L (46-116) Total Protein 7.6 g/dL (5.7-8.2) Albumin 4.8 g/dL (3.2-4.8) Troponin I High Sensitivity 3 ng/L (</=54) Prothrombin Time 11.2 sec (9.3-11.8) Prothrombin Time INR 1.06 (0.9-1.15) Activated Partial Thromboplast Time 29.2 SEC (24.5-34.5) Hemoglobin A1c 7.2 % A1C (<5.7) Phosphorus Level 4.2 mg/dL (2.4-5.1) Magnesium Level 2.2 mg/dL (1.6-2.6) B-Type Natriuretic Peptide 20.49 pg/mL (0-100) Triglycerides Level 231 mg/dL (< 150) Cholesterol Level 175 mg/dL (< 200) LDL Cholesterol 97 mg/dL (< 100) HDL Cholesterol 39 mg/dL (40-59) Thyroid Stimulating Hormone (TSH) 1.93 uIU/mL (0.55-4.78) Test 03/25/24 15:21 Urine Color Light-yellow (Yellow) Urine Clarity Clear (Clear) Urine pH 7.0 (5.0-9.0) Urine Specific [place] 1.008 (1.001-1.035) Urine Protein Trace (Negative) Urine Ketones Negative (Negative) Urine Blood Negative /uL (Negative) Urine Nitrite Negative (Negative) Urine Bilirubin Negative (Negative) Urine Urobilinogen Normal mg/dL (Negative) Urine Leukocyte Esterase Negative /uL (Negative) Urine RBC 1 /hpf (0 - 3) Urine WBC None seen /hpf (0 - 3) Urine Squamous Epithelial Cells Few /hpf (<5) Urine Bacteria Few /hpf (None Seen) Urine Glucose 1+ mg/dL (Normal) Other Laboratory Tests 03/27/24 06:11 Brief Hx & Hospital Course: 63-year-old male with past medical history of hypertension hyperlipidemia DM and CVA comes to the ED with complaint of dizziness neck pain patient has been having issues with high blood pressure but takes no medication on initial evaluation in the ED the patient's blood pressure was higher than 200s over 100s patient was complaining of blurry vision weakness dizziness while in the ED initially started on medication and recommended for admission further evaluation and continued care as per ED During hospital stay, head ct scan normal, ekg normal, negative troponins, mild MELO (creat 1.13), patient needed hydralazine and clonidine, chronic blood pressure management was optimized with lisinopril 20mg, HCTZ 12.5 mg, nifedipine 60 mg, patient was discharged with BP 140/90, patient was advised to continue f/u with pcp General Appearance: Oriented X3, Cooperative HEENT: Atraumatic, PERRLA Respiratory: Clear to auscultation, Normal air movement Cardiovascular: Regular rate, Normal S1, Normal S2 Abdominal: Normal bowel sounds, Soft Extremities: No clubbing, No cyanosis, No edema Skin: No rashes, No breakdown Neuro: mild weakness in the left hemibody Psych/Mental Status: Mood NL Case discussed with Dr Felder Time spent on care 23 min Operations or Procedures CLINICAL INFORMATION: 63 years old, Male; Dizziness and headache. TECHNIQUE: Axial imaging was obtained through the brain without contrast. Coronal and sagittal reformatted images were obtained, reviewed, and stored. Images were reviewed in brain and bone windows. All CT scans at this medical facility are performed using dose modulation techniques as appropriate to a performed exam including the following: Automated exposure control was utilized; adjustment of the MA and/or KV according to patient size; and use of iterative reconstruction technique. CTDIvol = 54.16 mGy DLP = 957.85 mGy-cm COMPARISON: None FINDINGS: There is no acute intracranial hemorrhage or extraaxial fluid collection. No mass effect or midline shift. Focal area of hypoattenuation in the right thalamus and adjacent portions of the right basal ganglia and extending to the subinsular region, likely encephalomalacia/gliosis. Small chronic appearing lacunar infarct in the left thalamus. Scattered areas of hypoattenuation are seen in the periventricular and subcortical white matter, which are nonspecific but most likely sequelae of small vessel ischemic disease.The ventricles and sulci are within normal limits in size for age. Basal cisterns are patent. The calvarium is unremarkable. Mild mucosal thickening of the paranasal sinuses. IMPRESSION: 1. No CT evidence of acute intracranial abnormality. 2. Nonacute appearing findings as described above. TID ARTERIAL DOPPLER CLINICAL HISTORY: htn stenosis evaluation TECHNIQUE: Doppler study of bilateral carotid/vertebral arteries were performed. Comparison: None FINDINGS: The bilateral common carotid, external and internal carotid arteries appear patent without hemodynamically significant stenosis. There is no significant flow limiting plaque formation identified.The spectral wave forms and peak systolic velocities are within normal limits. Antegrade flow is present within the vertebral arteries with appropriate velocities and waveforms. Right ICA/CCA PSV ratio = 0.9. Left ICA/CCA PSV ratio = 1.0 . IMPRESSION: 1. No hemodynamically significant stenosis within the carotid arteries. Condition at Discharge: Stable Final Diagnosis/Problems List #Hypertensive urgency resolved #DM type 2 pending hb1ac #h/o stroke in june 2024 #Focal area of hypoattenuation in the right thalamus and adjacent portions of the right basal ganglia and extending to the subinsular region, likely encephalomalacia/gliosis. #Small chronic appearing lacunar infarct in the left thalamus. #Sequelae of small vessel ischemic disease in periventricular and subcortical white matter MELO VMN due to hypertensive urgency Discharge Disposition: Home Discharge Instruct/Medications Diet: Consistent carbohydrate, Cardiac 2g Na,low cholest Activity: No Restrictions, As Tolerated Follow Up/Referral: dc clinic Medications: resume home meds, see prescription, add nifedipine, please take BPs at home Discharge Statement: "Patient was advised to return to the ER or call 911 if any headaches, dizziness, shortness of breath, chest pain, abdominal pain, bleeding, fevers, or worsening of medical condition. Patient was counseled about treatment plan, medications, possible side effects, patientverbalized understanding. All questions were answered to the best of my ability. This discharge took greater then 30 minutes in planning, reviewing documentation, counseling the patient, and discussing with other team members." ASSESSMENT ASSESSMENT Assessment Hypertensive Urgency Date of Service: Mar 27, 2024 Billing Provider: FAROOQ FELDER MD Common Visit Codes: 28134-ZBY/OBS DISCH DAY >30min JEREMY IVAN RESIDENT Mar 27, 2024 18:38 FAROOQ FELDER MD Mar 28, 2024 20:29
== END 2024-03-27 11:00 | disposition home or self-care (01) | DRG 199 ==
LOC: ER 11:11 → EDBD 11:11 → OVERFLOW 13:57 → CENTRAL 14:10
PROVIDERS: ADMIT Internal Medicine Geriatric Medicine; ATTEND Internal Medicine Geriatric Medicine
DX: I16.0 Hypertensive urgency (principal); N17.0 Acute kidney failure with tubular necrosis; G93.89 Other specified disorders of brain; I69.354 Hemiplegia and hemiparesis following cerebral infarction affecting left non-dominant side; I10 Essential (primary) hypertension; E11.9 Type 2 diabetes mellitus without complications; E78.5 Hyperlipidemia, unspecified; Z83.3 Family history of diabetes mellitus; Z79.4 Long term (current) use of insulin; Z79.899 Other long term (current) drug therapy
CPT/HCPCS: 36415; 70450; 80048; 80053; 80061; 81001; 82962; 83036; 83735; 83880; 84100; 84443; 84484; 85025; 85610; 85730; 93005; 93306; 93886; 96360; 99291; G0378; J1815; J2405